=== PATIENT | male | born 1965 | race Caucasian/White ===

== ENCOUNTER 2022-02-28 13:26 | Emergency (ER) | payer OTHER ==
[~2022-02-28] VITALS: Ht 167.6 cm; Wt 91.0 kg
[2022-02-28] MEDS ORDERED: LIDOCAINE HCL/PF 1% 10 MG/ML 5ML VIAL INFIL ONE (13:45)
[2022-02-28] MEDS ORDERED: MORPHINE SULFATE 4 MG/ML CPJ (NOT FOR IM USE) IV ONE (13:45)
[2022-02-28] MEDS ORDERED: TETANUS, DIPHTHERIA, PERTUSSIS VAC/PF 0.5ML (>10YR OLD) IM ONE ×2 (13:45→17:50)
[2022-02-28] MEDS ORDERED: KETAMINE HCL 50 MG/ML 10ML IV ONE (16:00)
[2022-02-28] MEDS ORDERED: KETAMINE HCL 50 MG/ML 10ML IV NR (16:00)
[2022-02-28] MEDS ORDERED: FENTANYL CITRATE/PF 50MCG/ML 2ML VIAL IV NR (16:00)
[2022-02-28] MEDS ORDERED: FENTANYL CITRATE/PF 50MCG/ML 2ML VIAL IV ONE ×2 (16:00→21:15)
[2022-02-28 16:37] LABS: HEMOGLOBIN. 15.9 g/dL (14.0-18.0); MEAN CORPUSCULAR HEMOGLOBIN 30.9 pg (28.0-32.0); MEAN CORPUSCULAR VOLUME 91.1 fL (80.0-94.0); MEAN PLATELET VOLUME 9.3 fl (7.4-10.4); PLATELET 175 x1000/uL (130-400); RED BLOOD CELL COUNT 5.16 mill/uL (4.7-6.1); RED CELL DISTRIBUTION WIDTH 13.5 % (11.6-14.6)
[2022-02-28 16:45] LABS: CHLORIDE 107 mEq/L (98-107)
[2022-02-28 16:53] LABS: PARTIAL THROMBOPLASTIN TIME 25.3 sec (23.4-31.0); PROTHROMBIN TIME 10.7 sec (9.6-11.0)
[2022-02-28 19:34] LABS: PLATELET ESTIMATE NORMAL
[2022-02-28] MEDS ORDERED: HYDR-4001 MT (21:56)
[2022-02-28] MEDS ORDERED: IBUP-2029 MT (21:56)
[2022-02-28 22:30] VITALS: BP 140/80
== END 2022-02-28 23:30 | disposition home or self-care (01) ==
LOC: ER 13:49
DX: S02.2XXA Fracture of nasal bones, initial encounter for closed fracture (principal); S53.194A Other dislocation of right ulnohumeral joint, initial encounter; S52.121A Displaced fracture of head of right radius, initial encounter for closed fracture; W18.39XA Other fall on same level, initial encounter; Y93.89 Activity, other specified; Y92.89 Other specified places as the place of occurrence of the external cause; Y99.8 Other external cause status
CPT/HCPCS: 12011; 36415; 70450; 70486; 71045; 72125; 73070; 73090; 80053; 85025; 85610; 85730; 90471; 90715; 96374; 96375; 96376; 99285; J2270; J3010; J3490